=== PATIENT | male | born 1965 | race Caucasian/White ===

== ENCOUNTER 2024-05-23 07:29 | Day surgery (SDC) | payer MEDICAID ==
[~2024-05-23] VITALS: Ht 175.3 cm; Wt 89.4 kg
[2024-05-23] MEDS ORDERED: fentaNYL CITRATE/PF 100 MCG/2 ML AMP ONE (07:53)
[2024-05-23] MEDS ORDERED: MIDAZOLAM HCL 5 MG/5 ML VIAL ONE (10:03)
[2024-05-23] MEDS ORDERED: MEPERIDINE 100 MG INJ. 100 MG/ML VIAL ONE (10:03)
[2024-05-26 15:28] VITALS: BP_SYST 170; PULSE 77; RESP 18; TEMP 97.3; O2SAT 99
== END 2024-05-23 12:04 | disposition home or self-care (01) ==
LOC: SDS 07:29 → SMU 07:31 → SDS 12:04
PROVIDERS: ATTEND Student in an Organized Health Care Education/Training Program
DX: Z12.11 Encounter for screening for malignant neoplasm of colon (principal); D12.3 Benign neoplasm of transverse colon; K63.89 Other specified diseases of intestine; K64.8 Other hemorrhoids; K64.4 Residual hemorrhoidal skin tags; Z79.899 Other long term (current) drug therapy
CPT/HCPCS: 99152; 45385; 88305; 99153; G0378; J2250; J2175; 45382; 45384; J3010